=== PATIENT | female | born 1970 | race American Indian/Alaskan Native ===

== ENCOUNTER 2022-04-20 07:06 | Day surgery (SDC) | payer BC ==
[2022-04-20] MEDS ORDERED: ROCURONIUM 50 MG/5 ML INJ IV ONE (08:46)
[2022-04-20] MEDS ORDERED: LIDOCAINE MPF (2%) 20 MG/1 ML VIAL 5 ML ONE (08:46)
[2022-04-20] MEDS ORDERED: propofoL 200 MG/20 ML VIAL IV ONE (08:46)
[2022-04-20] MEDS ORDERED: fentaNYL 100 MCG/2 ML INJ ONE ×2 (08:46→09:16)
--- NOTE | 2022-04-20 08:53 | Anesthesia Day of Surgery ---
Anesthesia Day of Surgery - Day of Surgery Patient Examined: Yes Patient H&P Reviewed: Yes Patient is NPO: Yes
--- NOTE | 2022-04-20 08:54 | Anesthesia Consultation ---
Anesthesia Consult and Med Hx Date of service: 04/20/22 - Airway Anesthetic Teeth Evaluation: Good, Caps ROM Head & Neck: Adequate Mental/Hyoid Distance: Adequate Mallampati Class: Class II Intubation Access Assessment: Good - Pre-Operative Health Status ASA Pre-Surgery Classification: ASA2 Proposed Anesthetic Plan: General Nerve Block: IS - Pulmonary Hx Smoking: No Hx Sleep Apnea: No (MAGAN PRE SCREEN LOW RISK) - Cardiovascular System Hx Hypertension: Yes (X 2 YRS) - Central Nervous System Hx Psychiatric Problems: No - Gastrointestinal Hx Gastroesophageal Reflux Disease: No - Hematic Hx Anemia: No Hx Sickle Cell Disease: No - Other Systems Hx Cancer: No - Additional Comments Anesthesia Medical History Comments: Had physical last week with ECG
[2022-04-20] MEDS ORDERED: dexAMETHasone 4 MG/ML VIAL ONE (08:58)
[2022-04-20] MEDS ORDERED: BUPIVACAINE-EPINEPHRINE/PF 0.5%-1:200,000 (30 ML) VIAL INFILTRATI ONE (08:58)
[2022-04-20] MEDS ORDERED: HYDROmorphone 0.5 MG/0.5 ML INJ IV PRN ×2 (09:00)
[2022-04-20] MEDS ORDERED: ONDANSETRON 4 MG/2 ML INJ IV NR (09:00)
[2022-04-20] MEDS ORDERED: LACTATED RINGERS 1,000 ML ONE (09:16)
[2022-04-20] MEDS ORDERED: MIDAZOLAM 2 MG/2 ML INJ ONE (09:16)
[2022-04-20] MEDS ORDERED: EPINEPHrine/PF 1 MG/1 ML INJ ONE (09:25)
[2022-04-20] MEDS ORDERED: BUPIVACAINE-EPINEPHRINE/PF 0.25%-1:200,000 (30 ML) VIAL INFILTRATI ONE (09:25)
[2022-04-20] MEDS ORDERED: LACTATED RINGERS 1,000 ML IV SCH (09:30)
[2022-04-20] MEDS ORDERED: ceFAZolin/STERILE WATER 2 GM/20 ML SYRINGE IV NR (09:40)
[2022-04-20] MEDS ORDERED: FAMOTIDINE 20 MG/2 ML INJ IV ONE (09:48)
[2022-04-20] MEDS ORDERED: ceFAZolin/Water 2 GM/20 ML 2 GM/20 ML SYRINGE IV ONE (09:53)
[2022-04-20] MEDS ORDERED: KETOROLAC 30 MG/1 ML INJ ONE (11:01)
[2022-04-20] MEDS ORDERED: dexAMETHasone 20 MG/5 ML VIAL ONE (11:01)
[2022-04-20] MEDS ORDERED: ONDANSETRON 4 MG/2 ML INJ ONE (11:01)
[2022-04-20] MEDS ORDERED: GLYCOPYRROLATE 0.4 MG/2 ML INJ ONE (11:02)
[2022-04-20] MEDS ORDERED: NEOSTIGMINE 10MG/10 ML INJ MDV ONE (11:02)
[2022-04-20] MEDS ORDERED: SODIUM CHLORIDE 0.9% IRRIG SOLN 3000 ML IR ONE (11:19)
[2022-04-20] MEDS ORDERED: EPINEPHrine/PF 1 MG/1 ML INJ IRRIGATION ONE (11:20)
[2022-04-20] MEDS ORDERED: HYDROmorphone 1 MG/1 ML INJ ONE (11:37)
--- NOTE | 2022-04-20 12:31 | Operative Report ---
DATE OF SURGERY: 04/20/2022 PREOPERATIVE DIAGNOSES: Left shoulder rotator cuff tear and adhesive capsulitis. POSTOPERATIVE DIAGNOSES: Left shoulder rotator cuff tear and adhesive capsulitis. PROCEDURES PERFORMED: Left shoulder manipulation under anesthesia and rotator cuff repair, subacromial decompression. SURGEON: Horacio Soriano II, MD COMPENSATION AND HRIS ANALYST: None. ANESTHESIA: General with interscalene block. COMPLICATIONS: None. DRAINS: None. SPECIMENS: None. TOURNIQUET TIME: Not applicable. 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 There is a high-grade partial-thickness tear of the rotator cuff estimated to be about 60% thickness. There was significant intra-articular synovitis present. Examination under anesthesia, external rotation was to neutral, forward flexion was to 90 prior to manipulation. INDICATIONS: The patient is a 51-year-old female who has been having refractory pain in her left shoulder. Evaluation and workup suggestive of a left shoulder rotator cuff tear. It was recommended the patient undergo surgical management after failing conservative treatment measures. DESCRIPTION OF PROCEDURE: In the preoperative holding area, site was marked with surgical marking pen. Extremity was prepped and draped in sterile fashion in a beach chair position. Examination under anesthesia was performed revealing limited range of motion and therefore a manipulation under anesthesia was performed. The arthroscope was then introduced through a posterior portal. Diagnostic arthroscopy revealed significant intraarticular synovitis. There was noted to be grade 3 chondromalacia of the glenohumeral joint consistent with arthritis. Rotator cuff was visualized. There was noted to be a high-grade partial thickness tear of the rotator cuff. Decision was made to perform a rotator cuff repair. Biceps tendon was intact. Superior labrum was intact. Repair of the rotator cuff was performed while visualizing from the subacromial space. Scope was placed there and we noted there to be significant subacromial bursitis, which was resected. A subacromial decompression was performed removing about 5 mm undersurface of the acromion. A 5.5 mm PEEK [employer] anchor from [employer] was inserted just off the articular margin. Two mattress sutures were passed through the rotator cuff and tied down arthroscopically. A second implant, a 4.5 mm PEEK [employer] anchor from the [employer] was inserted to complete the repair. The arthroscope was placed back intraarticularly. It was noted to be tied down to the articular margin. Arthroscope was removed. Incisions were closed with 3-0 nylon. Sterile dressing was applied. The patient was awakened and taken to recovery room in stable condition. POSTOPERATIVE PLAN: The patient will be in a sling for 6 weeks, do physical therapy, work on range of motion exercise. We will see the patient back for followup in about 2 weeks' time for recheck. TID: [id number] RECEIPT: [id number] ASI/SAY
--- NOTE | 2022-04-20 16:05 | Post Anesthesia Evaluation ---
- Post Anesthesia Evaluation Patient Participated: Yes Airway Patent: Yes Stable Respiratory Function: Yes Nausea/Vomiting: No Temp > 96.8F: Yes Pain Manageable: Yes Adequeate Hydration: Yes Anesthesia Complications: No Block Receding Appropriately: Yes Patient on Ventilator: No
[2022-04-20 17:30] VITALS: BP 125/70
== END 2022-04-20 14:50 | disposition home or self-care (01) ==
LOC: OR 07:06
PROVIDERS: ATTEND Orthopaedic Surgery Sports Medicine
DX: M75.102 Unspecified rotator cuff tear or rupture of left shoulder, not specified as traumatic (principal); M75.02 Adhesive capsulitis of left shoulder; Z79.899 Other long term (current) drug therapy; I10 Essential (primary) hypertension; Z98.890 Other specified postprocedural states
CPT/HCPCS: 29826; 29827; 64415; 81025; C1713; J0171; J0690; J1100; J1815; J1885; J2250; J2405; J2704; J2710; J3010; J3490; J7120; 64450; J1170